=== PATIENT | female | born 1980 | race Caucasian/White ===

== ENCOUNTER → 2016-08-10 | Outpatient (CLI) | payer BC | LOC: CT 09:30 | DX: R59.9 Enlarged lymph nodes, unspecified (principal) | CPT/HCPCS: 70492; J7050; Q9962 ==

== ENCOUNTER → 2020-10-04 | Outpatient (CLI) | payer BC ==
[2020-10-04 16:47] LABS: HEMOGLOBIN 11.5 gm/dl (12.3-15.3); RED BLOOD COUNT 3.56 M/UL (4.00-5.10); WHITE BLOOD COUNT 7.2 K/UL (4.5-11.0)
[2020-10-04 17:03] LABS: BUN/CREATININE RATIO 30 (0-10)
== END ==
LOC: LAB 16:17
PROVIDERS: Colon & Rectal Surgery
DX: K60.1 Chronic anal fissure (principal); R94.31 Abnormal electrocardiogram [ECG] [EKG]
CPT/HCPCS: 80048; 85027; 93005

== ENCOUNTER → 2021-07-02 | Outpatient (CLI) | payer BC ==
[2021-07-02 12:44] LABS: RED BLOOD COUNT 3.79 M/UL (4.00-5.10); WHITE BLOOD COUNT 5.9 K/UL (4.5-11.0)
[2021-07-02 13:13] LABS: BUN/CREATININE RATIO 25 (0-10)
[2021-07-04 08:15] LABS: VITAMIN D, 25-HYDROXY 45.3 ng/mL (30.0-100.0)
[2021-07-04 10:15] LABS: HEP A AB, IGM Negative (Negative)
== END ==
LOC: LAB 11:57
PROVIDERS: Internal Medicine
DX: Z01.84 Encounter for antibody response examination (principal); R76.8 Other specified abnormal immunological findings in serum; E11.9 Type 2 diabetes mellitus without complications; I10 Essential (primary) hypertension; B15.9 Hepatitis A without hepatic coma; Z79.899 Other long term (current) drug therapy
CPT/HCPCS: 36415; 80053; 80061; 82607; 82728; 82746; 83036; 83540; 83550; 84439; 84443; 85025; 86708; 86709

== ENCOUNTER → 2022-01-29 | Outpatient (CLI) | payer BC, OTHER | LOC: EXRD 14:54 | DX: Z80.8 Family history of malignant neoplasm of other organs or systems (principal); E04.1 Nontoxic single thyroid nodule | CPT/HCPCS: 76536 ==